=== PATIENT | female | born 1965 | race Caucasian/White ===

== ENCOUNTER 2022-04-01 21:07 | Emergency (ER) | payer OTHER, SELFPAY ==
[2022-04-01 21:12] VITALS: BP 201/95; PULSE 79; RESP 18; TEMP 36.7; O2SAT 96; BMI 29.0
--- NOTE | 2022-04-01 21:18 | DI.RAD.S_ITS ---
PROCEDURE: XR CHEST 1V INDICATIONS: chest pain TECHNIQUE: One view of the chest was acquired. COMPARISON: None. FINDINGS: Surgical changes and devices: None. Lungs and pleura: Lungs are clear. No pleural effusions or pneumothorax. Mediastinum: Mediastinal contours appear normal. Heart size is normal. Bones and chest wall: No suspicious bony lesions. Overlying soft tissues appear unremarkable. IMPRESSION: 1. No acute cardiopulmonary disease. Dictated by: Isaias Devi M.D. on 04/01/2022 at 22:38 Approved by: Isaias Devi M.D. on 04/01/2022 at 22:39
[2022-04-01 21:35] LABS: Add Manual Diff / Slide Review NO; Basophils Absolute Auto 0 /uL (0-100); Basophils Percent Auto 0.6 % (0-2); Eosinophils Absolute Auto 200 /uL (0-450); Eosinophils Percent Auto 2.5 % (2-4); Hemoglobin 13.8 g/dL (12.0-16.0); Lymphocytes Absolute Auto 2000 /uL (1100-4500); Lymphocytes Percent Auto 31.7 % (25-40); Mean Corpuscular HGB Conc 34.6 % (30-36); Mean Corpuscular Hemoglobin 30.4 PG (26-34); Mean Corpuscular Volume 87.9 fL (80-100); Monocytes Absolute Auto 500 /uL (0-900); Monocytes Percent Auto 7.6 % (3-14); Neutrophils Absolute Auto 3700 /uL (1500-7000); Neutrophils Percent Auto 57.6 % (50-75); Platelet Count 160 X10^3/uL (150-400); Red Blood Cell Count 4.55 X10^6/uL (4.0-5.2); Red Cell Distribution Width 12.6 % (11.6-14.8); White Blood Cell Count 6.4 X10^3/uL (4.5-11.0)
[2022-04-01 21:44] LABS: Alanine Aminotransferase 58 IU/L (<35); Albumin 4.7 g/dL (3.5-5.0); Albumin Globulin Ratio 1.7 (1.0-2.8); Alkaline Phosphatase 55 U/L (38-126); Aspartate Aminotransferase 68 IU/L (14-36); BUN Creatinine Ratio 28.8 (6-22); Bilirubin Total 0.6 mg/dL (0.2-1.3); Blood Urea Nitrogen 15 mg/dL (7-17); Calcium 9.8 mg/dL (8.4-10.2); Carbon Dioxide 24 mmol/L (22-32); Chloride 102 mmol/L (98-107); Creatine Kinase 82 U/L (30-135); Estimated Glomerular Filt Rate > 60 mL/min (>60); Globulin 2.8 g/dL (1.7-4.1); Glucose 153 mg/dL (70-100); HEMOLYSIS < 15 (0-50); Lipase 185 U/L (23-300); Potassium 4.3 mmol/L (3.4-5.1); Sodium 138 mmol/L (137-145); Total Protein 7.5 g/dL (6.3-8.2)
[2022-04-01 21:55] LABS: Troponin I < 0.012 ng/mL (0.01-0.034)
[2022-04-01 22:34] VITALS: O2SAT 97
[2022-04-01 22:35] VITALS: BP 165/78; PULSE 72; O2SAT 96
[2022-04-01 22:43] VITALS: BP 166/85; PULSE 76; RESP 19; O2SAT 99
[2022-04-01] MEDS: MAGNESIUM SULFATE 2 GM/50 ML PIGGYBACK IV (22:44)
[2022-04-01 23:00] VITALS: BP 152/68; PULSE 70; RESP 20; O2SAT 96
[2022-04-01 23:30] VITALS: BP 156/70; PULSE 70; O2SAT 96
[2022-04-02] VITALS: BP 142/63; PULSE 71; O2SAT 95
--- NOTE | 2022-04-02 00:35 | ED_ITS ---
HPI - Chest Pain General Chief Complaint: Chest Pain Stated Complaint: heart things going on Time Seen by Provider: 04/01/22 22:37 Source: patient Mode of arrival: Ambulatory Limitations: no limitations History of Present Illness HPI narrative: Patient is a 56-year-old female history of hypertension hyperlipidemia type 2 diabetes and smoker presenting today with right if symptoms including dizziness and chest discomfort and palpitations. She says she has had symptoms ongoing since yesterday. The dizziness comes and goes it does not seem to be positional. She denies nausea vomiting numbness tingling or weakness. Not happened to her before. She has also had some chest discomfort which she describes as sharp and stabbing which last for about 30 seconds at a time. She has multiple episodes throughout the day. She feels like she might be having a skipped beat as well. No known history of coronary artery disease. She denies any fever or chills. Overall feeling a bit better at with the dizziness but still having some chest discomfort. Initial blood pressure was quite high 201/95 she says her blood pressure is never that high. Related Data Allergies Allergy/AdvReac Type Severity Reaction Status Date / Time hydrocodone [From Vicodin] AdvReac Mild ITCHING Verified 04/01/22 21:17 Review of Systems Review of Systems Narrative: GENERAL: Denies chills, fatigue, malaise, fever, sweats, travel HEENT: Denies sinus pain, ear pain, sore throat, difficulty swallowing, neck pain RESPIRATORY: Denies dyspnea, cough, wheezing, hemoptysis, sputum. CARDIOVASCULAR: See HPI GASTROINTESTINAL: Denies nausea, vomiting, abdominal pain, diarrhea, con stipation, melena. : Denies dysuria, frequency, incontinence, hematuria, urinary retention, flank pain. MUSCULOSKELETAL: Denies weakness, joint pain, or bony pain SKIN: No rash, no erythema, no pruritus NEUROLOGIC: See HPI PSYCHIATRIC: No concerning psychosocial issues. 12 point review of systems is negative except for those stated above and HPI Patient History Social History Smoking Status: Current every day smoker Smoking Status: Current every day smoker alcohol intake frequency: a few times a month Substance Use Type: does not use Exam Initial Vital Signs Initial Vital Signs: Vital Signs Temperature 98.0 F 04/01/22 21:12 Pulse Rate 79 04/01/22 21:12 Respiratory Rate 18 04/01/22 21:12 Blood Pressure 201/95 H 04/01/22 21:12 Pulse Oximetry 96 04/01/22 21:12 GENERAL: Alert pleasant 56-year-old female HEENT: Head atraumatic,EOMI, pupils reactive, face symmetric, [moist] mucous membranes CARDIOVASCULAR: Regular rate and rhythm without murmurs, rubs or gallops. RESPIRATORY: Breath sounds equal bilaterally, no wheezes rales or rhonchi. ABDOMEN: Soft, nontender. Normoactive bowel sounds all 4 quadrants. No guarding or rebound. EXTREMITIES: Normal range of motion, no clubbing or edema. Neurovascularly i ntact NEUROLOGICAL: Alert and oriented x4.Normal gait and speech. Cranial nerves II through XII grossly intact. 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 Course Orders Ordered: Discontinued Medications Magnesium Sulfate (Magnesium Sulfate) 2 gm in 50 mls @ 25 mls/hr IV NOW ONE Stop: 04/02/22 00:36 Last Infusion: 04/02/22 00:30 Dose: 0 mls/hr Documented by: KEVIN Cosigned by: NITZA Admin: 04/01/22 22:44 Dose: 25 mls/hr Documented by: INTZA Cosigned by: JN Vital Signs Vital signs: Vital Signs - 8 hr 04/01/22 21:12 04/01/22 22:34 04/01/22 22:35 Temperature 98.0 F Pulse Rate 79 72 Respiratory Rate 18 Blood Pressure 201/95 H 165/78 H Pulse Oximetry 96 97 96 04/01/22 22:43 04/01/22 23:00 04/01/22 23:30 Temperature Pulse Rate 76 70 70 Respiratory Rate 19 20 Blood Pressure 166/85 H 152/68 H 156/70 H Pulse Oximetry 99 96 96 04/02/22 00:00 04/02/22 00:37 Temperature Pulse Rate 71 69 Respiratory Rate 30 H Blood Pressure 142/63 H Pulse Oximetry 95 94 MDM - Chest Pain Lab Data Result diagrams: 04/01/22 21:24 04/01/22 21:24 Labs: Lab Results 04/01/22 04/01/22 04/02/22 Range/Units 21:24 21:24 00:11 WBC 6.4 (4.5-11.0) X10^3/uL RBC 4.55 (4.0-5.2) X10^6/uL Hgb 13.8 (12.0-16.0) g/dL Hct 40.0 (36-46) % MCV 87.9 (80-100) fL MCH 30.4 (26-34) PG MCHC 34.6 (30-36) % RDW 12.6 (11.6-14.8) % Plt Count 160 (150-400) X10^3/uL Neut % (Auto) 57.6 (50-75) % Lymph % (Auto) 31.7 (25-40) % [place] % (Auto) 7.6 (3-14) % Eos % (Auto) 2.5 (2-4) % Baso % (Auto) 0.6 (0-2) % Neut # (Auto) 3700 (7620-6258) /uL Lymph # (Auto) 2000 (6625-2205) /uL [place] # (Auto) 500 (0-900) /uL Eos # (Auto) 200 (0-450) /uL Baso # (Auto) 0 (0-100) /uL Sodium 138 (137-145) mmol/L Potassium 4.3 (3.4-5.1) mmol/L Chloride 102 (98-107) mmol/L Carbon Dioxide 24 (22-32) mmol/L BUN 15 (7-17) mg/dL Creatinine 0.52 (0.52-1.04) mg/dL Estimated GFR > 60 (>60) mL/min BUN/Creatinine Ratio 28.8 H (6-22) Glucose 153 H (70-100) mg/dL Calcium 9.8 (8.4-10.2) mg/dL Magnesium 1.0 L (1.6-2.3) mg/dL Total Bilirubin 0.6 (0.2-1.3) mg/dL AST 68 H (14-36) IU/L ALT 58 H (<35) IU/L Alkaline Phosphatase 55 (38-126) U/L Total Creatine Kinase 82 (30-135) U/L CK-MB (CK-2) TNP CK-MB (CK-2) Rel Index TNP Troponin I < 0.012 < 0.012 (0.01-0.034) ng/mL Total Protein 7.5 (6.3-8.2) g/dL Albumin 4.7 (3.5-5.0) g/dL Globulin 2.8 (1.7-4.1) g/dL Albumin/Globulin Ratio 1.7 (1.0-2.8) Lipase 185 (23-300) U/L Imaging Data Chest x-ray: Radiologist's Impression: Signed Patient: Pratima Jones MR#: [id number] : 1965 Acct:[id number] Age/Sex: 56 / F Date of Service: 04/01/22 Loc: ED Accession Number: [id number] ?? Procedure: XR chest 1V Ordering Provider: Lanie Roland D.O. PROCEDURE:? XR CHEST 1V ? INDICATIONS:? chest pain ? TECHNIQUE:? One view of the chest was acquired.? ? COMPARISON:? None. ? FINDINGS:? ? Surgical changes and devices:? None.? ? Lungs and pleura:? Lungs are clear.? No pleural effusions or pneumothorax.? ? Mediastinum:? Mediastinal contours appear normal.? Heart size is normal.? ? Bones and chest wall:? No suspicious bony lesions.? Overlying soft tissues appear unremarkable.? ? IMPRESSION:? ? 1.? No acute cardiopulmonary disease. ? ? ? Dictated by: Isaias Devi M.D. on 04/01/2022 at 22:38 ? ? Approved by: Isaias Devi M.D. on 04/01/2022 at 22:39 ? ECG Data Interpretation: Normal sinus rhythm rate 72 OR interval 170 QRS [address] changes, no priors EKG 2. Sinus rhythm rate 68 OR interval 174 QRS [address] changes artifact noted similar to previous MDM Narrative Medical decision making narrative: Patient has right knee if symptoms dizziness seems to have improved. She is complaining of sharp stabbing chest pain which comes and goes for like 30 seconds at a time does not seem to be cardiac related. No abnormalities is noted on monitor no PVCs. This has been going on for at least 24 hours a to 2 troponins are negative without EKG changes. No focal deficits dizziness seems to be positional I do not suspect posterior stroke at this time. No need for imaging. She has been ambulatory to the restroom without difficulty. I did discuss with patient that she has multiple risk factors including smoking hypertension hyperlipidemia strongly encouraged her to follow up with her primar care provider and get outpatient stress testing. At this time is with her constellation of symptoms I do not believe this to be cardiac in nature at this time but he certainly is at risk. I discussed all findings with the patient , Education has been performed regarding treatment plan, diagnosis, warning signs and symptoms and all concerns have been addressed. Verbally agree with and understood all of the above. Discharge Plan Departure Patient Disposition: Home Clinical Impression: Atypical chest pain, Hypomagnesemia Instructions: DI for Atypical Chest Pain Activity Restrictions/Additional Instructions: *You have been diagnosed with patient will chest pain, dizziness, low magnesium *What to do: Your magnesium was noted to be slightly low today, please have it recheck next week. It may or may not be causing some of your issues. You may also require further heart testing such as tress test with your primary care provider or office engineer. *Continue to take medications as directed *Follow up with your primary care provider in 2-3 days or call [phone] *Return to ER if you should have worsening chest discomfort dizziness numbness tingling weakness shortness of breath any new, worsening or concerning symptoms Visit Report Forms: Patient Portal/API
[2022-04-02 00:37] VITALS: PULSE 69; RESP 30; O2SAT 94
[2022-04-02 00:42] LABS: Troponin I < 0.012 ng/mL (0.01-0.034)
[2022-04-02 01:00] VITALS: BP 144/66; PULSE 72; RESP 18; O2SAT 94
== END 2022-04-02 01:19 | disposition home or self-care (01) ==
PROVIDERS: Emergency Provider Emergency Medicine
DX: R07.89 Other chest pain (principal); E83.42 Hypomagnesemia; R00.2 Palpitations; R42 Dizziness and giddiness
CPT/HCPCS: 36415; 71045; 80053; 82550; 83690; 83735; 84484; 85025; 93005; 96365; 96366; 99284; J3475

== ENCOUNTER → 2024-02-18 12:42 | Outpatient (CLI) | payer OTHER, SELFPAY | PROVIDERS: Visit Provider Physician Assistant Medical | DX: J02.9 Acute pharyngitis, unspecified (principal) | CPT/HCPCS: 87070; 87077; 87185 ==